=== PATIENT | female | born 1950 | race Caucasian/White ===

== ENCOUNTER 2017-05-19 12:39 | Emergency (ER) | payer MEDICARE, OTHER ==
[2017-05-19] MEDS: ACETAMINOPHEN 500 MG TAB PO (14:04)
== END 2017-05-19 16:20 | disposition home or self-care (01) ==
LOC: FTE 12:39
DX: R07.81 Pleurodynia (principal)
CPT/HCPCS: 71045; 71100; 76705; 99284-25

== ENCOUNTER 2017-12-08 06:14 | Inpatient (IN) | payer MEDICARE, OTHER ==
[2017-12-05 08:56] LABS: ADD MAN DIFF? NO
[2017-12-05 08:58] LABS: BASOPHILS % 0.6 % (0.0-2.0); EOSINOPHILS # 0.2 10^3/ul (0.0-0.5); EOSINOPHILS % 4.4 % (0.0-7.0); HEMATOCRIT 34.4 % (37.0-47.0); HEMOGLOBIN 11.2 g/dl (12.0-16.0); LYMPHOCYTES # 1.2 10^3/ul (0.8-2.9); LYMPHOCYTES % 33.7 % (15.0-51.0); MEAN CORPUSCULAR HEMOGLOBIN 33.4 pg (29.0-33.0); MEAN CORPUSCULAR HGB CONC 32.6 g/dl (32.0-37.0); MEAN CORPUSCULAR VOLUME 102.7 fl (82.0-101.0); MEAN PLATELET VOLUME 7.9 fl (7.4-10.4); MONOCYTE # 0.3 10^3/ul (0.3-0.9); NEUTROPHIL # 1.7 10^3/ul (1.6-7.5); PLATELET COUNT 191 10^3/UL (140-415); RED BLOOD COUNT 3.35 10^6/ul (4.20-5.40); RED CELL DISTRIBUTION WIDTH 13.2 % (11.5-14.5)
[2017-12-05 08:58] LABS: WHITE BLOOD COUNT 3.4 10^3/ul (4.8-10.8)
[2017-12-05 09:20] LABS: HOLD TRANSMISSIONS 1
[2017-12-05 09:21] LABS: INR 1.07; PT RATIO 1.1
[2017-12-05 09:22] LABS: PARTIAL THROMBOPLASTIN TIME 28.8 Sec (25.0-35.0)
[2017-12-05 09:28] LABS: ALANINE AMINOTRANSFERASE 23 IU/L (13-69); ALBUMIN 4.5 g/dl (3.3-4.9); ALKALINE PHOSPHATASE 60 IU/L (42-121); ANION GAP 11 (8-16); ASPARTATE AMINO TRANSFERASE 25 IU/L (15-46); BILIRUBIN,INDIRECT 0.9 mg/dl (0-1.1); BILIRUBIN,TOTAL 0.9 mg/dl (0.2-1.3); BLOOD UREA NITROGEN 17 mg/dl (7-20); CALCIUM 9.7 mg/dl (8.4-10.2); CARBON DIOXIDE 29 mmol/L (21-31); CHLORIDE 108 mmol/L (97-110); CREATININE 0.59 mg/dl (0.44-1.00); GLUCOSE 100 mg/dl (70-220); POTASSIUM 3.8 mmol/L (3.5-5.1); SODIUM 144 mmol/L (135-144); TOTAL PROTEIN 7.7 g/dl (6.1-8.1)
[2017-12-08] MEDS ORDERED: POLYMYXIN/BACITRACIN 1L IRRIG (09:35)
[2017-12-08] MEDS ORDERED: PROPOFOL 20 ML (09:43)
[2017-12-08] MEDS ORDERED: LIDOCAINE 2% (SDV) 5 ML INJ (09:43)
[2017-12-08] MEDS ORDERED: FENTAnyl 50 MCG/ML VIAL ×2 (09:47→11:43)
[2017-12-08] MEDS ORDERED: MIDAZOLAM 1 MG/ML 2 ML INJ (09:47)
[2017-12-08] MEDS ORDERED: FAMOTIDINE 20 MG INJ (09:56)
[2017-12-08] MEDS ORDERED: ONDANSETRON 4 MG INJ (09:56)
[2017-12-08] MEDS ORDERED: EPHEDrine 25 MG/5 ML SYG (09:56)
[2017-12-08] MEDS ORDERED: CEFAZOLIN 1 GM INJ ×2 (09:56)
[2017-12-08] MEDS ORDERED: DEXAMETHASONE 4 MG/ML 1 ML INJ (09:56)
[2017-12-08] MEDS ORDERED: ACETAMINOPHEN 1000MG/100ML IV 100 ML ×2 (09:57→10:06)
[2017-12-08] MEDS ORDERED: ROPIVACAINE 0.5 % 30 ML VIAL (09:58)
[2017-12-08] MEDS ORDERED: CEFAZOLIN 2 GM/50 ML (PMX) 50 ML IVPB (10:00)
[2017-12-08] MEDS ORDERED: SOD CHLORIDE 0.9% 1,000 ML IV (10:00)
[2017-12-08] MEDS ORDERED: ROCURONIUM 50 MG INJ (10:23)
[2017-12-08] MEDS ORDERED: SUCCINYLCHOLINE CHLORIDE 100 MG/5 ML SYG IV (10:23)
[2017-12-08] MEDS ORDERED: SUGAMMADEX SODIUM 200 MG/2 ML VIAL IV (11:02)
[2017-12-08] MEDS ORDERED: LABETALOL HCL 20MG INJ IV (12:00)
[2017-12-08] MEDS ORDERED: FENTAnyl 50 MCG/ML VIAL IV (12:00)
[2017-12-08] MEDS ORDERED: DIPHENHYDRAMINE 50 MG INJ IV (12:00)
[2017-12-08] MEDS ORDERED: ONDANSETRON 4 MG INJ IV (12:00)
[2017-12-08] MEDS ORDERED: PROCHLORPERAZINE 10 MG INJ IV (12:00)
[2017-12-08] MEDS ORDERED: MEPERIDINE 25 MG INJ IV (12:00)
[2017-12-08] MEDS ORDERED: hydrALAzine 20 MG INJ IV (12:00)
[2017-12-08] MEDS: ONDANSETRON 4 MG INJ IV ×2 (12:38→19:59)
[2017-12-08] MEDS: HYDROmorphONE 1 MG/5 ML IV SYRINGE IV (12:38)
[2017-12-08] MEDS: D5W-0.45 NACL + KCL 20 MEQ 1,000 ML IV ×2 (12:47→19:59)
[2017-12-09] MEDS ORDERED: IBUPROFEN 600 MG TAB PO (02:30)
[2017-12-09] MEDS ORDERED: ONDANSETRON 4 MG INJ IV (02:30)
[2017-12-09] MEDS: ACETAMINOPHEN 1000MG/100ML IV 100 ML IVPB ×4 (03:01→18:33)
[2017-12-09] MEDS: D5W-0.45 NACL + KCL 20 MEQ 1,000 ML IV ×3 (04:20→22:56)
[2017-12-09] MEDS ORDERED: DEXTROSE 50% 50 ML SYRINGE IV ×2 (12:30)
[2017-12-09] MEDS ORDERED: GLUCAGON 1 MG INJ IM (12:30)
[2017-12-09] MEDS ORDERED: GLUCOSE GEL 15 GRAM TUBE PO ×2 (12:30)
[2017-12-09] MEDS ORDERED: GLUCOSE GEL 15 GRAM TUBE BUCCAL (12:30)
[2017-12-09] MEDS: morphine 2 MG INJ IV (23:37)
[2017-12-10] MEDS: ACCU-CHEK XX (01:24)
[2017-12-10] MEDS: D5W-0.45 NACL + KCL 20 MEQ 1,000 ML IV ×2 (02:49→09:52)
[2017-12-10 05:20] LABS: ADD MAN DIFF? NO
[2017-12-10 05:25] LABS: WHITE BLOOD COUNT 4.7 10^3/ul (4.8-10.8)
[2017-12-10 05:25] LABS: BASOPHILS % 0.2 % (0.0-2.0); EOSINOPHILS # 0.1 10^3/ul (0.0-0.5); EOSINOPHILS % 1.7 % (0.0-7.0); HEMATOCRIT 32.6 % (37.0-47.0); LYMPHOCYTES # 0.8 10^3/ul (0.8-2.9); LYMPHOCYTES % 16.1 % (15.0-51.0); MEAN CORPUSCULAR HEMOGLOBIN 34.1 pg (29.0-33.0); MEAN CORPUSCULAR HGB CONC 33.7 g/dl (32.0-37.0); MEAN CORPUSCULAR VOLUME 100.9 fl (82.0-101.0); MEAN PLATELET VOLUME 8.3 fl (7.4-10.4); MONOCYTE # 0.4 10^3/ul (0.3-0.9); MONOCYTES % 8.5 % (0.0-11.0); NEUTROPHIL # 3.5 10^3/ul (1.6-7.5); NEUTROPHILS % 73.3 % (39.0-77.0); PLATELET COUNT 194 10^3/UL (140-415); RED BLOOD COUNT 3.23 10^6/ul (4.20-5.40); RED CELL DISTRIBUTION WIDTH 13.4 % (11.5-14.5)
[2017-12-10] MEDS: morphine 2 MG INJ IV (05:26)
[2017-12-10 06:07] LABS: ANION GAP 8 (8-16); BLOOD UREA NITROGEN 6 mg/dl (7-20); CALCIUM 9.1 mg/dl (8.4-10.2); CARBON DIOXIDE 31 mmol/L (21-31); CHLORIDE 108 mmol/L (97-110); CREATININE 0.53 mg/dl (0.44-1.00); GLUCOSE 126 mg/dl (70-220); POTASSIUM 5.1 mmol/L (3.5-5.1); SODIUM 142 mmol/L (135-144)
== END 2017-12-10 17:25 | disposition home or self-care (01) | DRG 330 ==
LOC: SDS 06:14 → REC 11:29 → MS1 14:12
PROC: 0WQF0ZZ Repair Abdominal Wall, Open Approach (ICD-10-PCS; principal; 2017-12-08 09:30)
PROC: 0DQ80ZZ Repair Small Intestine, Open Approach (ICD-10-PCS; 2017-12-08 09:30)
DX: K43.6 Other and unspecified ventral hernia with obstruction, without gangrene (principal); K91.71 Accidental puncture and laceration of a digestive system organ or structure during a digestive system procedure; E11.9 Type 2 diabetes mellitus without complications; Z85.048 Personal history of other malignant neoplasm of rectum, rectosigmoid junction, and anus; Y83.8 Other surgical procedures as the cause of abnormal reaction of the patient, or of later complication, without mention of misadventure at the time of the procedure; Y92.234 Operating room of hospital as the place of occurrence of the external cause
CPT/HCPCS: 71045; 74018; 80048; 80053; 82962; 85025; 85610; 85730; 87086; 88302; 93005

== ENCOUNTER 2018-12-22 23:19 | Emergency (ER) | payer MEDICARE, OTHER | END 2018-12-23 00:47 | disposition home or self-care (01) | LOC: FTE 12-23 00:47 | DX: S61.011A Laceration without foreign body of right thumb without damage to nail, initial encounter (principal); W26.8XXA Contact with other sharp object(s), not elsewhere classified, initial encounter; Y92.9 Unspecified place or not applicable | CPT/HCPCS: 12002; 99282-25 ==